=== PATIENT | male | born 1960 | race Caucasian/White ===

== ENCOUNTER 2021-08-08 22:37 | Inpatient (IN) | payer SELFPAY ==
[~2021-08-08] VITALS: Ht 172.7 cm; Wt 77.3 kg
[2021-08-08 23:12] LABS: BASOPHILS # (AUTO) 0.1 (0.0-0.1); BASOPHILS % 0.7 % (0.0-1.0); EOSINOPHILS # (AUTO) 0.3 (0.0-0.4); EOSINOPHILS % 2.5 % (0.0-6.0); HEMATOCRIT 54.3 % (38.2-49.6); LYMPHOCYTES # (AUTO) 2.2 (1.0-3.2); LYMPHOCYTES % 20.5 % (18.0-39.1); MEAN CORPUSCULAR HEMOGLOBIN 33.3 pg (28-32); MEAN CORPUSCULAR HGB CONC 33.1 g/dL (31-35); MEAN CORPUSCULAR VOLUME 100.6 fL (81-99); MONOCYTES % 8.9 % (4.4-11.3); NEUTROPHILS # (AUTO) 7.3 (2.1-6.9); NEUTROPHILS % 66.9 % (38.7-80.0); PLATELET COUNT 290 x10e3/uL (140-360); RED CELL DISTRIBUTION WIDTH 11.9 % (11.7-14.4)
[2021-08-09] VITALS (7 sets, daily range): BP systolic 109–135; BP diastolic 74–77
[2021-08-09 01:16] LABS: ALANINE AMINOTRANSFERASE 21 IU/L (0-55); ALBUMIN 3.9 g/dL (3.5-5.0); ALBUMIN/GLOBULIN RATIO 0.9 (0.8-2.0); ALKALINE PHOSPHATASE 79 IU/L (40-150); BLOOD UREA NITROGEN 17 mg/dL (7-26); CALCIUM 9.9 mg/dL (8.4-10.2); CARBON DIOXIDE 21 mmol/L (22-29); CREATINE KINASE 28 IU/L (30-200); GLUCOSE 132 mg/dL (74-118)
[2021-08-09 01:30] LABS: ANION GAP 16.6 mmol/L (8-16); BUN/CREATININE RATIO 17 (6-25); CHLORIDE 105 mmol/L (98-107); CREATININE, SERUM 1.04 mg/dL (0.72-1.25); EST GLOMERULAR FILTRATION RATE 73 ML/MIN (60-); POTASSIUM 3.6 mmol/L (3.5-5.1); SODIUM 140 mmol/L (136-145)
[2021-08-09] MEDS ORDERED: IOPAMIDOL 370 MG/ML 100 ML INFUS..BTL INJ ONE (01:47)
[2021-08-09] MEDS ORDERED: CEFTRIAXONE 1 GM VIAL ONE (03:28)
[2021-08-09] MEDS ORDERED: ONDANSETRON HCL INJ 2MG/ML 2ML 2 MG/ML VIAL IV PRN (03:45)
[2021-08-09] MEDS: SODIUM CHLORIDE 0.9% 1000ML 1,000 ML IV SCH ×3 (04:07→22:19)
[2021-08-09 04:10] LABS: CLARITY,URINE CLEAR (CLEAR); COLOR,URINE YELLOW (YELLOW)
[2021-08-09 04:11] LABS: KETONES,URINE NEGATIVE (NEGATIVE); LEUKOCYTE ESTERASE ,URINE NEGATIVE (NEGATIVE); NITRITE,URINE NEGATIVE (NEGATIVE); PROTEIN,URINE DIPSTICK NEGATIVE (NEGATIVE); URINE UROBILINOGEN 0.2 mg/dL (0.2 - 1)
[2021-08-09 04:28] LABS: BACTERIA,URINE FEW /HPF; EPITHELIAL CELLS,URINE FEW /LPF; RBC,URINE 0-5 /HPF (0-5); WBC,URINE (MAN) 0-5 /HPF (0-5)
[2021-08-09] MEDS ORDERED: PLAVIX75 MG PO (09:41)
[2021-08-09] MEDS ORDERED: ASPIRIN81 MG PO (09:41)
[2021-08-09] MEDS ORDERED: HYDROCODON-ACE1 EAC9 (09:41)
[2021-08-09] MEDS ORDERED: ATORVASTATIN CA10 MG PO (09:41)
[2021-08-09] MEDS ORDERED: VICODIN HP 10-1 EAC1 PO (09:41)
[2021-08-09] MEDS ORDERED: LISINOPRIL5 MG PO (09:41)
[2021-08-09] MEDS ORDERED: METOPROLOL TARTRATE INJ 1 MG/ML VIAL IV PRN (15:45)
[2021-08-09] MEDS ORDERED: ACETAMINOPHEN 325 MG SUPP PR PRN (15:45)
[2021-08-09] MEDS: METOCLOPRAMIDE HCL 10 MG/2ML VIAL IV SCH (22:18)
[2021-08-09] MEDS ORDERED: KETOROLAC TROMETHAMINE 30 MG/ML VIAL IM PRN (23:15)
[2021-08-10] VITALS: BP 117/77
[2021-08-10 04:00] VITALS: BP 117/76
[2021-08-10] MEDS: SODIUM CHLORIDE 0.9% 1000ML 1,000 ML IV SCH (05:11)
[2021-08-10] MEDS: METOCLOPRAMIDE HCL 10 MG/2ML VIAL IV SCH (05:32)
[2021-08-10 06:08] LABS: BASOPHILS # (AUTO) 0.1 (0.0-0.1); BASOPHILS % 0.6 % (0.0-1.0); EOSINOPHILS # (AUTO) 0.4 (0.0-0.4); EOSINOPHILS % 4.4 % (0.0-6.0); HEMATOCRIT 45.1 % (38.2-49.6); LYMPHOCYTES # (AUTO) 2.1 (1.0-3.2); LYMPHOCYTES % 26.2 % (18.0-39.1); MEAN CORPUSCULAR HEMOGLOBIN 33.6 pg (28-32); MEAN CORPUSCULAR HGB CONC 33.3 g/dL (31-35); MEAN CORPUSCULAR VOLUME 101.1 fL (81-99); MONOCYTES # (AUTO) 0.8 (0.2-0.8); MONOCYTES % 9.5 % (4.4-11.3); NEUTROPHILS # (AUTO) 4.7 (2.1-6.9); NEUTROPHILS % 58.5 % (38.7-80.0); PLATELET COUNT 228 x10e3/uL (140-360); RED BLOOD COUNT 4.46 x10e6/uL (4.3-5.7); RED CELL DISTRIBUTION WIDTH 11.8 % (11.7-14.4)
[2021-08-10 06:29] LABS: ALBUMIN 3.2 g/dL (3.5-5.0); ANION GAP 15.8 mmol/L (8-16); CALCIUM 8.2 mg/dL (8.4-10.2); CREATININE, SERUM 0.99 mg/dL (0.72-1.25); PHOSPHORUS 3.1 MG/DL (2.3-4.7); POTASSIUM 3.8 mmol/L (3.5-5.1)
[2021-08-10 06:56] LABS: THYROID STIMULATING HORMONE 1.992 uIU/mL (0.350-4.940)
[2021-08-10 08:11] VITALS: BP 130/80
[2021-08-10 08:32] VITALS: BP 130/80
[2021-08-10] MEDS ORDERED: LACTULOSE20 GM/30 M PO (09:26)
[2021-08-10] MEDS ORDERED: DULCOLAX5 MG PO (09:26)
== END 2021-08-10 10:07 | disposition home or self-care (01) | DRG 389 ==
LOC: ER 22:53 → ERHOLD 08-09 03:42 → MED/SURG2 08-09 08:13 → OBSVTOIN 08-09 12:55
PROVIDERS: ADMIT Internal Medicine; ATTEND Internal Medicine
DX: K56.609 Unspecified intestinal obstruction, unspecified as to partial versus complete obstruction (principal); N13.8 Other obstructive and reflux uropathy; E87.2 Acidosis; K21.9 Gastro-esophageal reflux disease without esophagitis; J44.9 Chronic obstructive pulmonary disease, unspecified; E86.0 Dehydration; I25.10 Atherosclerotic heart disease of native coronary artery without angina pectoris; N40.1 Benign prostatic hyperplasia with lower urinary tract symptoms; R73.9 Hyperglycemia, unspecified; K57.30 Diverticulosis of large intestine without perforation or abscess without bleeding; Z72.0 Tobacco use; I25.2 Old myocardial infarction; Z95.1 Presence of aortocoronary bypass graft; Z88.8 Allergy status to other drugs, medicaments and biological substances; Z86.16 Personal history of COVID-19; K59.03 Drug induced constipation; T40.2X5A Adverse effect of other opioids, initial encounter; Z82.49 Family history of ischemic heart disease and other diseases of the circulatory system; Z20.822 Contact with and (suspected) exposure to COVID-19
CPT/HCPCS: 36415; 71045; 74019; 74177; 80053; 80061; 81001; 82550; 82553; 83036; 83690; 83735; 83880; 84100; 84443; 84484; 85025; 93005; 94799; 99284; J0696; J1885; J2765; J7030; Q9967; U0002